=== PATIENT | female | born 1970 | race Caucasian/White ===

== ENCOUNTER → 2016-09-04 | Outpatient (CLI) | payer MEDICAID ==
[~2016-09-04] MED LIST: /QUET10TA OR; ADV250INH INH; ALBU17IN2 INH; CYMBALTA; CYMBALTA PO; DRIS50002 PO; IBUP80TA PO; LEVO25TA5 PO; MACROBID PO; MIRA3350 PO; NORT75CA2 PO; OMEP20CA3 PO; XANA1TAB2 OR; XANAX
--- NOTE | 2016-09-04 14:38 | REPMRS ---
Patient History The patient states she has not had a clinical breast exam in over a year. Patient is postmenopausal. Family history of colorectal cancer in father at age 56. Digital Woman Screen Mammo: September 04, 2016 - Exam #: [id number] Bilateral CC and MLO view(s) were taken. Technologist: Adriana Centeno, Technologist Prior study comparison: August 15, 2010, digital bilateral screening mammo, performed at [facility]. January 07, 2009, digital bilateral screening mammo, performed at [facility]. FINDINGS: The breast tissue is heterogeneously dense. This may lower the sensitivity of mammography. There is a fairly symmetric fibroglandular pattern in both breasts. There has been no interval development of masses, areas of architectural distortion or clusters of microcalcifications typical of malignancy. ASSESSMENT: BI-RADS/ACR category 2 mammogram. Benign finding(s). Recommendation Routine screening mammogram of both breasts in 1 year (for women over age 40). This mammogram was interpreted with the aid of an FDA-approved computer-aided dectection system. Electronically Signed By: Kaushik Santos MD 09/04/16 2235
== END ==
LOC: M WHC 13:22
PROVIDERS: ATTEND Family Medicine
DX: Z12.31 Encounter for screening mammogram for malignant neoplasm of breast (principal)

== ENCOUNTER → 2016-09-05 | Outpatient (REF) | payer MEDICAID | LOC: M SFHCWAGY 12:12 | PROVIDERS: ATTEND Nurse Practitioner Family | DX: Z12.4 Encounter for screening for malignant neoplasm of cervix (principal); N39.42 Incontinence without sensory awareness; A59.01 Trichomonal vulvovaginitis | CPT/HCPCS: 87086; G0123 ==

== ENCOUNTER 2017-01-25 13:49 | Emergency (ER) | payer MEDICAID, OTHER ==
[~2017-01-25] VITALS: Ht 152.4 cm; Wt 110.1 kg
[2017-01-25] MEDS ORDERED: CLON-412 (14:14)
[2017-01-25] MEDS ORDERED: LORA1TAB12 (14:14)
[2017-01-25] MEDS ORDERED: ATIV1TAB7 (14:14)
[2017-01-25] MEDS ORDERED: CYCL10TA (14:14)
[2017-01-25] MEDS ORDERED: NS 1,000 ML IV SCH (14:22)
--- NOTE | 2017-01-25 15:11 | REP ---
PORTABLE CHEST: AP portable view of the chest is performed and compared to multiple prior exams, the most recent of which is 10/18/2013. Right heart border is not well visualized with some ill-defined opacity in that region, possibly representing atelectasis or infiltrate. There is no definite infiltrate on the left side. Heart is upper limits of normal in size. Mediastinal silhouette is unremarkable and unchanged. IMPRESSION: Possible small area of right middle lobe atelectasis or infiltrate. Signed by Kaushik Santos MD 01/26/2017 05:02 P
[2017-01-25 15:12] LABS: BASO % 0.5 % (0.0-1.0); EOS % 1.4 % (0.0-3.0); LARGE UNSTAINED CELL % 1.8 % (0.0-4.0); LYMPH % 17.2 % (24.0-44.0); MEAN CORPUSCULAR HEMOGLOBIN 32.7 pg (27.0-33.0); MEAN CORPUSCULAR HGB CONC 33.5 g/dl (32.0-36.5); MEAN CORPUSCULAR VOLUME 97.8 fl (80.0-96.0); MONO % 6.2 % (0.0-5.0); NEUTROPHILS # 8.6 K/mm3 (1.8-7.7); NEUTROPHILS % 72.8 % (36.0-66.0); PLATELET COUNT, AUTOMATED 248 k/mm3 (150-450); RED CELL DISTRIBUTION WIDTH 14.6 % (11.5-14.5); WHITE BLOOD COUNT 11.8 K/mm3 (4.0-10.0)
[2017-01-25 15:13] LABS: ADD MANUAL DIFFER NO; ADD MORPHOLOGY? NO; BASO # 0.1 K/mm3 (0.0-0.2); DIFF SLIDE NUMBER 285; EOS # 0.2 K/mm3 (0.0-0.50); LARGE UNSTAINED CELL # 0.2 K/mm3 (0.0-0.4); MONO # 0.7 K/mm3 (0.0-0.8)
[2017-01-25 15:23] LABS: ALBUMIN 3.5 GM/DL (3.2-5.2); ALBUMIN/GLOBULIN RATIO 1.03 (1.00-1.93); ALKALINE PHOSPHATASE 90 U/L (45-117); ALT/SGPT 23 U/L (12-78); ANION GAP 9 MEQ/L (8-16); AST/SGOT 10 U/L (15-37); BILIRUBIN,DIRECT < 0.1 MG/DL (0.0-0.2); BILIRUBIN,TOTAL 0.3 MG/DL (0.2-1.0); BLOOD UREA NITROGEN 18 MG/DL (7-18); CALCIUM LEVEL 8.7 MG/DL (8.5-10.1); CARBON DIOXIDE LEVEL 24 MEQ/L (21-32); CHLORIDE LEVEL 111 MEQ/L (98-107); CREATININE FOR GFR 0.65 MG/DL (0.55-1.02); GLOMERULAR FILTRATION RATE > 60.0 (>58); GLUCOSE, FASTING 111 MG/DL (70-105); POTASSIUM SERUM 3.9 MEQ/L (3.5-5.1); SODIUM LEVEL 144 MEQ/L (136-145); TOTAL PROTEIN 6.9 GM/DL (6.4-8.2)
[2017-01-25] MEDS ORDERED: ISOVUE-370 76% 100ML VIAL (Q9967) As Ordered ONE (16:09)
--- NOTE | 2017-01-25 16:45 | REP ---
CT of the chest with IV contrast, CT pulmonary angiography: Comparison is the portable plain film study performed earlier today. There are no emboli in the pulmonary trunk or central pulmonary arteries. There are no emboli in the pulmonary lobe or segment branches. There are no infiltrates, effusions or masses. There is no mediastinal or hilar adenopathy. No axillary adenopathy. The thoracic aorta is unremarkable. The visualized upper abdomen is unremarkable except for an 80 mm cyst in the medial segment of the hepatic left lobe. Impression: There are no pulmonary emboli. There are no infiltrates, effusions or masses. No adenopathy. Otherwise, negative study. An hepatic cyst is incidentally identified. Signed by Kaushik Ochoa MD 01/25/2017 04:37 P
[2017-01-25] MEDS ORDERED: SUCR1SS PO (16:53)
[2017-01-25] MEDS ORDERED: GI COCKTAIL 50ML BTL(HYOSCYAMINE/MAALOX/LIDOCAINE VISCOUS)(1:3:1) PO ONE (17:00)
[2017-01-25 17:05] VITALS: BP 129/65
[2017-01-25] MEDS ORDERED: ASPI81TA85 PO (17:10)
[2017-01-25] MEDS ORDERED: ASPIRIN 325 MG TAB PO ONE (17:15)
--- NOTE | 2017-01-25 21:00 | ECGEPIP ---
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
== END 2017-01-25 17:35 | disposition home or self-care (01) ==
LOC: M ED 13:49
DX: R07.9 Chest pain, unspecified (principal); J45.909 Unspecified asthma, uncomplicated; E78.4 Other hyperlipidemia; E03.9 Hypothyroidism, unspecified
CPT/HCPCS: 36415; 71010; 71275; 80048; 80076; 82550; 82553; 83690; 83880; 85025; 85379; 93000; 93041; 96360; 96361; 99285; Q9967

== ENCOUNTER → 2017-04-13 | Outpatient (REF) | payer OTHER ==
[~2017-04-13] MED LIST changes: +ASPI81TA85 PO; +ATIV1TAB7; +CLON-412; +CYCL10TA; +LORA1TAB12; +SUCR1SS PO
[2017-04-13 14:38] LABS: VITAMIN B12 LEVEL 287 PG/ML (247-911)
[2017-04-13 14:40] LABS: FREE T4 1.03 NG/DL (0.76-1.46); TOTAL PROTEIN 6.9 GM/DL (6.4-8.2)
[2017-04-16 11:14] LABS: ALBUMIN 3.97 GM/DL (3.29-5.55); ALBUMIN % 57.6 % (55.8-66.1); GAMMA GLOBULIN % 13.7 % (11.1-18.8)
[2017-04-17 10:14] LABS: PRETREATED FOLATE FOR RBCFOL 5.9 NG/ML
[2017-04-20 10:16] LABS: BENZODIAZEPINES, URINE SCREEN Negative ng/mL (Cutoff=200); COMPLEMENT TOTAL (CH50) > 63 U/mL (42-60); H PYLORI SERUM QUANT IgG ABY <0.9 U/mL (0.0-0.8); METHADONE, URINE SCREEN Negative ng/mL (Cutoff=300); pH, URINE 5.5 (4.5-8.9)
== END ==
LOC: M SFHCPLAZ 11:54
PROVIDERS: ATTEND Family Medicine
DX: E03.9 Hypothyroidism, unspecified (principal); R73.01 Impaired fasting glucose; E55.9 Vitamin D deficiency, unspecified; D75.89 Other specified diseases of blood and blood-forming organs; M47.816 Spondylosis without myelopathy or radiculopathy, lumbar region

== ENCOUNTER → 2017-10-29 | Outpatient (REF) | payer OTHER ==
[2017-10-29 11:54] LABS: BASO # 0.1 10^3/uL (0.0-0.2); BASO % 0.6 % (0.0-1.0); EOS # 0.2 10^3/uL (0.0-0.50); EOS % 1.8 % (0.0-3.0); HEMATOCRIT 49.2 % (36.0-47.0); HEMOGLOBIN 16.6 g/dl (12.0-15.5); IMMATURE GRANULOCYTE % 0.8 % (0-3.0); LYMPH # 2.6 10^3/uL (1.5-4.5); LYMPH % 21.4 % (24.0-44.0); MEAN CORPUSCULAR HEMOGLOBIN 32.4 pg (27.0-33.0); MEAN CORPUSCULAR HGB CONC 33.7 g/dl (32.0-36.5); MEAN CORPUSCULAR VOLUME 96.1 fl (80.0-96.0); MONO # 1.1 10^3/uL (0.0-0.8); MONO % 9.5 % (0.0-5.0); NEUTROPHILS # 7.9 10^3/uL (1.8-7.7); NEUTROPHILS % 65.9 % (36.0-66.0); PLATELET COUNT, AUTOMATED 249 10^3/uL (150-450); RED BLOOD COUNT 5.12 10^6/uL (4.00-5.40); RED CELL DISTRIBUTION WIDTH 12.7 % (11.5-14.5)
[2017-10-29 11:58] LABS: HEMATOCRIT 49.2 % (36.0-47.0)
[2017-10-29 12:19] LABS: PTH INTACT 36.2 PG/ML (18.5-88.0); TOTAL 25(OH) VITAMIN D 34.8 NG/ML (30.0-100.0)
[2017-10-29 12:20] LABS: VITAMIN B12 LEVEL 340 PG/ML (247-911)
[2017-10-29 12:51] LABS: ALBUMIN 3.9 GM/DL (3.2-5.2); ALBUMIN/GLOBULIN RATIO 1.11 (1.00-1.93); ALKALINE PHOSPHATASE 76 U/L (45-117); ALT/SGPT 32 U/L (12-78); ANION GAP 6 MEQ/L (8-16); AST/SGOT 15 U/L (7-37); BILIRUBIN,TOTAL 0.4 MG/DL (0.2-1.0); BLOOD UREA NITROGEN 11 MG/DL (7-18); C REACTIVE PROTEIN QUANTITATIV 0.65 MG/DL (0.00-0.30); CALCIUM LEVEL 9.1 MG/DL (8.5-10.1); CARBON DIOXIDE LEVEL 28 MEQ/L (21-32); CHLORIDE LEVEL 106 MEQ/L (98-107); CHOLESTEROL LEVEL 197 MG/DL (<200); CHOLESTEROL RISK RATIO 3.517 (<5); CREATININE FOR GFR 0.75 MG/DL (0.55-1.30); FREE T4 0.94 NG/DL (0.76-1.46); GLOMERULAR FILTRATION RATE > 60.0 (>58); GLUCOSE, FASTING 89 MG/DL (70-100); HDL CHOLESTEROL 56 MG/DL (>40); LDL CHOLESTEROL 112.6 MG/DL (<100); NON-HDL-C 141 MG/DL; POTASSIUM SERUM 4.2 MEQ/L (3.5-5.1); SODIUM LEVEL 140 MEQ/L (136-145); TOTAL PROTEIN 7.4 GM/DL (6.4-8.2); TRIGLYCERIDES LEVEL 142 MG/DL (<150)
[2017-10-30 11:38] LABS: PRETREATED FOLATE FOR RBCFOL 13.1 NG/ML; RBC FOLATE 559.1 NG/ML (280-791)
== END ==
LOC: M SFHCPLAZ 09:39
DX: E53.8 Deficiency of other specified B group vitamins (principal); E55.9 Vitamin D deficiency, unspecified; E78.2 Mixed hyperlipidemia; E03.9 Hypothyroidism, unspecified

== ENCOUNTER → 2018-01-01 | Outpatient (REF) | payer OTHER | LOC: M LAB REF 13:53 | DX: L72.3 Sebaceous cyst (principal) ==

== ENCOUNTER → 2018-04-23 | Outpatient (REF) | payer OTHER ==
[2018-04-23 19:05] LABS: BASO # 0.1 10^3/uL (0.0-0.2); BASO % 0.7 % (0.0-1.0); EOS # 0.3 10^3/uL (0.0-0.50); EOS % 2.9 % (0.0-3.0); HEMATOCRIT 49.7 % (36.0-47.0); HEMOGLOBIN 16.2 g/dl (12.0-15.5); IMMATURE GRANULOCYTE % 0.7 % (0-3.0); LYMPH # 2.6 10^3/uL (1.5-4.5); LYMPH % 26.3 % (24.0-44.0); MEAN CORPUSCULAR HEMOGLOBIN 31.6 pg (27.0-33.0); MEAN CORPUSCULAR HGB CONC 32.6 g/dl (32.0-36.5); MEAN CORPUSCULAR VOLUME 97.1 fl (80.0-96.0); MONO # 0.9 10^3/uL (0.0-0.8); MONO % 9.5 % (0.0-5.0); NEUTROPHILS % 59.9 % (36.0-66.0); PLATELET COUNT, AUTOMATED 249 10^3/uL (150-450); RED BLOOD COUNT 5.12 10^6/uL (4.00-5.40); RED CELL DISTRIBUTION WIDTH 13.2 % (11.5-14.5); WHITE BLOOD COUNT 9.9 10^3/uL (4.0-10.0)
[2018-04-23 19:16] LABS: APPEARANCE, URINE HAZY (CLEAR); BACTERIA, URINE AUTO NEGATIVE (NEGATIVE); BILIRUBIN, URINE AUTO NEGATIVE (NEGATIVE); BLOOD, URINE BLOOD 1+ (NEGATIVE); COLOR, URINE YELLOW (YELLOW); GLUCOSE, URINE (UA) AUTO NEGATIVE (NEGATIVE); KETONE, URINE AUTO NEGATIVE (NEGATIVE); LEUKOCYTE ESTERASE, URINE AUTO NEGATIVE (NEGATIVE); NITRITE, URINE AUTO NEGATIVE (NEGATIVE); PROTEIN, URINE AUTO NEGATIVE (NEGATIVE); RBC, URINE AUTO 6 /HPF (0-3); SPECIFIC GRAVITY URINE AUTO 1.023 (1.002-1.035); SQUAMOUS EPITHELIAL CELL UR AU 4 /HPF (0-6); WBC, URINE AUTO 0 /HPF (0-3)
[2018-04-23 19:26] LABS: ALBUMIN 3.7 GM/DL (3.2-5.2); ALBUMIN/GLOBULIN RATIO 1.09 (1.00-1.93); ALKALINE PHOSPHATASE 90 U/L (45-117); ALT/SGPT 31 U/L (12-78); ANION GAP 10 MEQ/L (8-16); AST/SGOT 20 U/L (7-37); BILIRUBIN,TOTAL 0.2 MG/DL (0.2-1.0); BLOOD UREA NITROGEN 11 MG/DL (7-18); CALCIUM LEVEL 8.9 MG/DL (8.5-10.1); CARBON DIOXIDE LEVEL 27 MEQ/L (21-32); CHLORIDE LEVEL 102 MEQ/L (98-107); CREATININE FOR GFR 0.75 MG/DL (0.55-1.30); GLOMERULAR FILTRATION RATE > 60.0 (>58); GLUCOSE, FASTING 85 MG/DL (70-100); MAGNESIUM LEVEL 2.1 MG/DL (1.8-2.4); POTASSIUM SERUM 4.2 MEQ/L (3.5-5.1); SODIUM LEVEL 139 MEQ/L (136-145); TOTAL PROTEIN 7.1 GM/DL (6.4-8.2)
[2018-04-23 19:30] LABS: ESTIMATED AVERAGE GLUCOSE 111 MG/DL (60-110); HEMOGLOBIN A1c 5.5 %
[2018-04-23 19:32] LABS: MALB URINE SIEMENS 8.4 MG/L
[2018-04-23 19:41] LABS: MAU/CREAT RATIO 5.1 MCG/MG (0.0-30.0)
[2018-04-25 08:06] LABS: ERYTHROPOIETIN 6.6 mIU/mL (2.6-18.5)
== END ==
LOC: M SFHCPLAZ 15:26
DX: D75.89 Other specified diseases of blood and blood-forming organs (principal); R73.01 Impaired fasting glucose; E78.2 Mixed hyperlipidemia

== ENCOUNTER → 2018-11-11 | Outpatient (CLI) | payer OTHER ==
[~2018-11-11] MED LIST changes: -/QUET10TA OR; -DRIS50002 PO; +DRIS50003 PO; +SERO1TAB OR
[2018-11-11 10:39] LABS: BASO # 0.1 10^3/uL (0.0-0.2); BASO % 0.8 % (0.0-1.0); EOS # 0.3 10^3/uL (0.0-0.50); EOS % 2.7 % (0.0-3.0); HEMATOCRIT 47.3 % (36.0-47.0); HEMOGLOBIN 15.6 g/dl (12.0-15.5); LYMPH # 2.5 10^3/uL (1.5-4.5); MEAN CORPUSCULAR HEMOGLOBIN 33.1 pg (27.0-33.0); MEAN CORPUSCULAR VOLUME 100.4 fl (80.0-96.0); NEUTROPHILS # 5.8 10^3/uL (1.8-7.7); NEUTROPHILS % 59.8 % (36.0-66.0); PLATELET COUNT, AUTOMATED 236 10^3/uL (150-450); RED BLOOD COUNT 4.71 10^6/uL (4.00-5.40); WHITE BLOOD COUNT 9.7 10^3/uL (4.0-10.0)
[2018-11-11 10:56] LABS: HEMOGLOBIN A1c 5.7 %
[2018-11-11 11:08] LABS: ALBUMIN 3.7 GM/DL (3.2-5.2); ALT/SGPT 23 U/L (12-78); BILIRUBIN,TOTAL 0.3 MG/DL (0.2-1.0); BLOOD UREA NITROGEN 15 MG/DL (7-18); CALCIUM LEVEL 8.7 MG/DL (8.5-10.1); CARBON DIOXIDE LEVEL 29 MEQ/L (21-32); CHLORIDE LEVEL 105 MEQ/L (98-107); CREATININE FOR GFR 0.71 MG/DL (0.55-1.30); FREE T4 0.84 NG/DL (0.76-1.46); GLOMERULAR FILTRATION RATE > 60.0 (>51); GLUCOSE, FASTING 99 MG/DL (70-100); POTASSIUM SERUM 4.9 MEQ/L (3.5-5.1); SODIUM LEVEL 140 MEQ/L (136-145); TOTAL PROTEIN 6.6 GM/DL (6.4-8.2); VITAMIN B12 LEVEL 236 PG/ML (247-911)
[2018-11-12 14:16] LABS: ALBUMIN 3.97 GM/DL (3.29-5.55); ALBUMIN % 60.1 % (55.8-66.1); ALPHA-1-GLOBULIN % 5.4 % (2.9-4.9); ALPHA-2-GLOBULINS % 8.9 % (7.1-11.8); BETA-1-GLOBULINS % 7.1 % (4.7-7.2); GAMMA GLOBULIN % 12.5 % (11.1-18.8)
[2018-11-12 14:17] LABS: ALPHA-1-GLOBULINS 0.36 GM/DL (0.17-0.41); ALPHA-2-GLOBULINS 0.59 GM/DL (0.42-0.99); BETA-1-GLOBULINS 0.47 GM/DL (0.28-0.60); GAMMA GLOBULINS 0.83 GM/DL (0.65-1.58)
[2018-11-12 14:18] LABS: IMMUNOTYPING SERUM IGG ABNORMAL (NORMAL); IMMUNOTYPING SERUM KAPPA ABNORMAL (NORMAL)
== END ==
LOC: M LAB 11-08 10:28
PROVIDERS: ATTEND Family Medicine
DX: E53.8 Deficiency of other specified B group vitamins (principal); E78.2 Mixed hyperlipidemia; E03.9 Hypothyroidism, unspecified; D75.89 Other specified diseases of blood and blood-forming organs
CPT/HCPCS: 36415; 80053; 82607; 83036; 84165; 84439; 84443; 84600; 85025; 85046; 86335; G0480

== ENCOUNTER → 2018-11-12 | Outpatient (CLI) | payer OTHER | LOC: M LAB 08:45 | PROVIDERS: ATTEND Family Medicine | DX: D75.89 Other specified diseases of blood and blood-forming organs (principal); E53.8 Deficiency of other specified B group vitamins; E78.2 Mixed hyperlipidemia; F32.9 Major depressive disorder, single episode, unspecified; E03.9 Hypothyroidism, unspecified ==

== ENCOUNTER → 2018-11-22 | Outpatient (REF) | payer OTHER ==
[2018-11-22 11:45] LABS: IMMUNOGLOBULIN M 32.6 MG/DL (40-230)
[2018-11-26 00:06] LABS: FREE KAPPA LIGHT CHAINS SERUM 25.9 mg/L (3.3-19.4); FREE KAPPA LIGHT CHAINS URINE 18.7 mg/L (1.35-24.19); FREE LAMBDA LIGHT CHAINS SERUM 16.3 mg/L (5.7-26.3); FREE LAMBDA LIGHT CHAINS URINE 1.5 mg/L (0.24-6.66); KAPPA/LAMBDA RATIO SERUM 1.59 (0.26-1.65); KAPPA/LAMBDA RATIO URINE 12.47 (2.04-10.37)
== END ==
LOC: M SFHCPLAZ 08:46
PROVIDERS: ATTEND Nurse Practitioner Family
DX: D47.2 Monoclonal gammopathy (principal)

== ENCOUNTER → 2019-05-12 | Outpatient (REF) | payer OTHER ==
[~2019-05-12] MED LIST changes: -OMEP20CA3 PO; +OMEP20CA4 PO
[2019-05-12 15:53] LABS: BASO # 0.1 10^3/uL (0.0-0.2); BASO % 0.8 % (0.0-1.0); EOS # 0.2 10^3/uL (0.0-0.5); EOS % 2.1 % (0.0-3.0); HEMOGLOBIN 15.9 g/dl (12.0-15.5); LYMPH # 2.1 10^3/uL (1.5-5.0); LYMPH % 23.1 % (24.0-44.0); MEAN CORPUSCULAR HEMOGLOBIN 31.9 pg (27.0-33.0); MEAN CORPUSCULAR HGB CONC 31.8 g/dl (32.0-36.5); MEAN CORPUSCULAR VOLUME 100.4 fl (80.0-96.0); MONO # 1.1 10^3/uL (0.0-0.8); MONO % 11.6 % (0.0-5.0); NEUTROPHILS # 5.6 10^3/uL (1.5-8.5); NEUTROPHILS % 61.6 % (36.0-66.0); PLATELET COUNT, AUTOMATED 215 10^3/uL (150-450); RED BLOOD COUNT 4.98 10^6/uL (4.00-5.40); WHITE BLOOD COUNT 9.1 10^3/uL (4.0-10.0)
[2019-05-12 16:10] LABS: ALBUMIN 3.8 GM/DL (3.2-5.2); ALT/SGPT 31 U/L (12-78); BILIRUBIN,TOTAL 0.5 MG/DL (0.2-1.0); BLOOD UREA NITROGEN 14 MG/DL (7-18); CALCIUM LEVEL 9.3 MG/DL (8.5-10.1); CARBON DIOXIDE LEVEL 31 MEQ/L (21-32); CHLORIDE LEVEL 102 MEQ/L (98-107); CREATININE FOR GFR 0.71 MG/DL (0.55-1.30); FREE T4 0.78 NG/DL (0.76-1.46); GLOMERULAR FILTRATION RATE > 60.0 (>51); GLUCOSE, FASTING 99 MG/DL (70-100); HEMOGLOBIN A1c 5.7 %; POTASSIUM SERUM 4.4 MEQ/L (3.5-5.1); SODIUM LEVEL 139 MEQ/L (136-145); TOTAL PROTEIN 7.2 GM/DL (6.4-8.2); VITAMIN B12 LEVEL 196 PG/ML (247-911)
[2019-05-12 16:11] LABS: FOLATE 19.2 NG/ML (>5.4)
== END ==
LOC: M SFHCPLAZ 13:56
PROVIDERS: ATTEND Physician Assistant Medical
DX: E03.9 Hypothyroidism, unspecified (principal); E53.8 Deficiency of other specified B group vitamins; D75.89 Other specified diseases of blood and blood-forming organs; J30.9 Allergic rhinitis, unspecified; E78.2 Mixed hyperlipidemia

== ENCOUNTER 2019-11-03 23:48 | Emergency (ER) | payer OTHER ==
[~2019-11-03] VITALS: Ht 157.5 cm; Wt 104.5 kg
[~2019-11-03 23:48] MED LIST changes: +CYCL-707; -CYCL10TA; -LORA1TAB12; +LORA1TAB4; +OMEP1CAP73 PO; -OMEP20CA4 PO
[2019-11-04] MEDS ORDERED: COMBIVENT RESPIMAT 100-20MCG INHALER 4GM INH ONE (00:30)
[2019-11-04] MEDS ORDERED: methylPREDNISolone INJ 125 MG/2 ML VIAL (J2930) IV ONE (00:30)
--- NOTE | 2019-11-04 00:41 | REP ---
Clinical: Chest pain . Comparison: 01/25/2017 . Findings: The mediastinum and cardiac silhouette are stable and within normal limits for portable technique. The lung hoyos are clear without acute consolidation, effusion, or pneumothorax. Skeletal structures are intact. Impression: No acute cardiopulmonary process appreciated. Electronically Signed by Chas June MD 11/04/2019 12:33 A
[2019-11-04 00:45] LABS: BASO # 0.1 10^3/uL (0.0-0.2); BASO % 0.7 % (0.0-1.0); EOS # 0.2 10^3/uL (0.0-0.5); EOS % 1.8 % (0.0-3.0); HEMATOCRIT 45.4 % (36.0-47.0); HEMOGLOBIN 14.7 g/dl (12.0-15.5); LYMPH # 2.3 10^3/uL (1.5-5.0); LYMPH % 23.9 % (24.0-44.0); MEAN CORPUSCULAR HEMOGLOBIN 32.2 pg (27.0-33.0); MEAN CORPUSCULAR HGB CONC 32.4 g/dl (32.0-36.5); MEAN CORPUSCULAR VOLUME 99.3 fl (80.0-96.0); MONO # 0.8 10^3/uL (0.0-0.8); MONO % 8.7 % (0.0-5.0); NEUTROPHILS # 6.2 10^3/uL (1.5-8.5); PLATELET COUNT, AUTOMATED 214 10^3/uL (150-450); RED BLOOD COUNT 4.57 10^6/uL (4.00-5.40); WHITE BLOOD COUNT 9.7 10^3/uL (4.0-10.0)
[2019-11-04 01:05] LABS: INR 1.04; PROTHROMBIN TIME 13.3 SECONDS (11.8-14.0)
[2019-11-04 01:06] LABS: PARTIAL THROMBOPLASTIN TIME 28.6 SECONDS (25.0-38.4)
[2019-11-04 01:30] LABS: ALBUMIN 3.4 GM/DL (3.2-5.2); ALT/SGPT 35 U/L (12-78); BILIRUBIN,DIRECT < 0.1 MG/DL (0.0-0.2); BILIRUBIN,TOTAL 0.2 MG/DL (0.2-1.0); BLOOD UREA NITROGEN 10 MG/DL (7-18); CALCIUM LEVEL 8.7 MG/DL (8.5-10.1); CARBON DIOXIDE LEVEL 29 MEQ/L (21-32); CHLORIDE LEVEL 106 MEQ/L (98-107); CK-MB VALUE MASS 1.1 NG/ML (<3.6); CPK CREATINE PHOSPHOKINASE 46 U/L (26-192); CREATININE FOR GFR 0.55 MG/DL (0.55-1.30); FREE T4 0.97 NG/DL (0.76-1.46); GLOMERULAR FILTRATION RATE > 60.0 (>51); GLUCOSE, FASTING 87 MG/DL (70-100); MB/CK RELATIVE INDEX 2.39 (< OR =4); NT-PRO BNP 80 PG/ML (<125); POTASSIUM SERUM 3.9 MEQ/L (3.5-5.1); SODIUM LEVEL 141 MEQ/L (136-145); TROPONIN I < 0.02 NG/ML (< 0.10)
--- NOTE | 2019-11-04 01:47 | REPVR ---
PROCEDURE INFORMATION: Exam: US Duplex Lower Extremity Veins, Bilateral Exam date and time: 11/04/2019 1:39 AM Age: 49 years old Clinical indication: Pain; Swelling (edema) of limb; Lower extremity, bilateral; Leg, lower; Additional info: Pain/edema R/O dvt TECHNIQUE: Imaging protocol: Real-time duplex ultrasound of the extremities with 2-D cavazos scale, color Doppler flow and spectral waveform analysis with image documentation. Complete exam focused on the bilateral lower extremity veins. COMPARISON: No relevant prior studies available. FINDINGS: Right deep veins: Unremarkable. The common femoral, femoral, proximal profunda femoral and popliteal veins are patent without thrombus. Normal Doppler waveforms. Normal compressibility and/or augmentation response. Right superficial veins: Saphenofemoral junction is patent without thrombus. Left deep veins: Unremarkable. The common femoral, femoral, proximal profunda femoral and popliteal veins are patent without thrombus. Normal Doppler waveforms. Normal compressibility and/or augmentation response. Left superficial veins: Saphenofemoral junction is patent without thrombus. Soft tissues: Unremarkable. IMPRESSION: Negative bilateral lower extremity venous duplex exam without evidence of deep venous thrombosis. Electronically signed by: Ren Burrows On 11/04/2019 01:47:31 AM
[2019-11-04 01:48] LABS: D-DIMER QUANT < 270 ng/ml (<500)
[2019-11-04 02:20] VITALS: O2SAT 92
[2019-11-04 02:25] VITALS: BP 115/59
[2019-11-04] MEDS ORDERED: PRED20TA PO (02:35)
--- NOTE | 2019-11-04 07:16 | ECGEPIP ---
[facility] - ED Test Date: 2019-11-04 Pat Name: FE JJ Department: Room: - Gender: Female Tread Booker: SHANTEL : 1970 Requested By: KATIANA Jimenez Order Number: [id number] Reading MD: Myrna West Measurements Intervals [place] Rate: 84 P: 54 NC: 132 QRS: 66 QRSD: 101 T: 48 QT: 394 QTc: 468 Interpretive Statements SINUS RHYTHM NSTTW abnormalities DECREASED RATE 01/25/17 Electronically Signed on 11-04-2019 7:16:32 EDT by Myrna West
== END 2019-11-04 02:48 | disposition home or self-care (01) ==
LOC: M ED 23:48
DX: J45.901 Unspecified asthma with (acute) exacerbation (principal); R60.0 Localized edema; E03.8 Other specified hypothyroidism; M19.90 Unspecified osteoarthritis, unspecified site; E55.9 Vitamin D deficiency, unspecified; E78.5 Hyperlipidemia, unspecified; F17.200 Nicotine dependence, unspecified, uncomplicated; Z79.899 Other long term (current) drug therapy; Z88.8 Allergy status to other drugs, medicaments and biological substances
CPT/HCPCS: 36415; 71045; 80048; 80076; 82550; 82553; 83880; 84439; 84443; 85025; 85379; 85610; 85730; 87486; 87581; 87633; 87798; 93005; 93041; 93970; 94640; 94760; 96374; 99284; J2930; U0003

== ENCOUNTER → 2022-01-10 | Outpatient (CLI) | payer OTHER ==
[~2022-01-10] MED LIST changes: -ASPI81TA85 PO; +ASPI81TA86 PO; +PRED20TA PO
[2022-01-10 14:39] LABS: BASO # 0.1 10^3/uL (0.0-0.2); BASO % 0.6 % (0.0-1.0); EOS # 0.1 10^3/uL (0.0-0.5); EOS % 1.4 % (0.0-3.0); HEMATOCRIT 54.2 % (36.0-47.0); HEMOGLOBIN 17.9 g/dl (12.0-15.5); LYMPH % 23.7 % (24.0-44.0); MEAN CORPUSCULAR HEMOGLOBIN 33.8 pg (27.0-33.0); MEAN CORPUSCULAR VOLUME 102.3 fl (80.0-96.0); MONO # 0.9 10^3/uL (0.0-0.8); MONO % 9.9 % (2.0-8.0); NEUTROPHILS # 5.5 10^3/uL (1.5-8.5); NEUTROPHILS % 63.6 % (36.0-66.0); PLATELET COUNT, AUTOMATED 198 10^3/uL (150-450); WHITE BLOOD COUNT 8.6 10^3/uL (4.0-10.0)
[2022-01-10 15:06] LABS: ALBUMIN 3.7 GM/DL (3.2-5.2); ALT/SGPT 25 U/L (12-78); BILIRUBIN,TOTAL 0.3 MG/DL (0.2-1.0); BLOOD UREA NITROGEN 12 MG/DL (7-18); CALCIUM LEVEL 9.7 MG/DL (8.5-10.1); CARBON DIOXIDE LEVEL 28 MEQ/L (21-32); CHLORIDE LEVEL 106 MEQ/L (98-107); CHOLESTEROL LEVEL 259 MG/DL (<200); CHOLESTEROL RISK RATIO 3.865 (<5); CREATININE FOR GFR 0.52 MG/DL (0.55-1.30); FREE T4 0.77 NG/DL (0.76-1.46); GLOMERULAR FILTRATION RATE > 60.0 (>51); GLUCOSE, FASTING 106 MG/DL (70-100); HDL CHOLESTEROL 67 MG/DL (>40); LDL CHOLESTEROL 147 MG/DL (<100); NON-HDL-C 192 MG/DL; POTASSIUM SERUM 4.3 MEQ/L (3.5-5.1); SODIUM LEVEL 142 MEQ/L (136-145); TOTAL PROTEIN 6.9 GM/DL (6.4-8.2); TRIGLYCERIDES LEVEL 227 MG/DL (<150)
[2022-01-10 15:31] LABS: TOTAL 25(OH) VITAMIN D 31.8 NG/ML (30.0-100.0); VITAMIN B12 LEVEL 1257 PG/ML (247-911)
[2022-01-10 15:32] LABS: FOLATE 8.2 NG/ML (>5.4)
[2022-01-10 15:46] LABS: HEMOGLOBIN A1c 5.6 %
[2022-01-13 12:39] LABS: ALBUMIN % 62.2 % (55.8-66.1); ALPHA-1-GLOBULIN % 4.9 % (2.9-4.9); ALPHA-2-GLOBULINS % 8.6 % (7.1-11.8)
[2022-01-13 12:40] LABS: ALBUMIN 4.29 GM/DL (3.29-5.55); ALPHA-1-GLOBULINS 0.34 GM/DL (0.17-0.41); ALPHA-2-GLOBULINS 0.59 GM/DL (0.42-0.99); BETA-1-GLOBULINS % 7.3 % (4.7-7.2); BETA-2-GLOBULINS 0.39 GM/DL (0.19-0.55); BETA-2-GLOBULINS % 5.7 % (3.2-6.5); GAMMA GLOBULIN % 11.3 % (11.1-18.8); GAMMA GLOBULINS 0.78 GM/DL (0.65-1.58)
== END ==
LOC: M PLALAB 09:38
PROVIDERS: ATTEND Nurse Practitioner Adult Health
DX: E53.8 Deficiency of other specified B group vitamins (principal); E78.2 Mixed hyperlipidemia; E03.9 Hypothyroidism, unspecified; E55.9 Vitamin D deficiency, unspecified; D47.2 Monoclonal gammopathy; F32.9 Major depressive disorder, single episode, unspecified; R73.01 Impaired fasting glucose

== ENCOUNTER → 2022-10-16 | Outpatient (REF) | payer OTHER ==
[~2022-10-16] MED LIST changes: +LORA1TAB23; -LORA1TAB4
== END ==
LOC: M SFHCPLAZ 18:06
PROVIDERS: ATTEND Family Medicine
DX: D47.2 Monoclonal gammopathy (principal); E03.9 Hypothyroidism, unspecified; R73.01 Impaired fasting glucose; E78.2 Mixed hyperlipidemia; E55.9 Vitamin D deficiency, unspecified; E53.8 Deficiency of other specified B group vitamins; Z53.9 Procedure and treatment not carried out, unspecified reason

== ENCOUNTER → 2022-12-05 | Outpatient (CLI) | payer OTHER ==
[2022-12-05 14:13] LABS: BASO # 0.1 10^3/uL (0.0-0.2); BASO % 0.9 % (0.0-1.0); EOS # 0.1 10^3/uL (0.0-0.5); EOS % 0.9 % (0.0-3.0); HEMATOCRIT 56.4 % (36.0-47.0); HEMOGLOBIN 19.1 g/dl (12.0-15.5); LYMPH % 31.1 % (24.0-44.0); MEAN CORPUSCULAR HEMOGLOBIN 35.8 pg (27.0-33.0); MEAN CORPUSCULAR HGB CONC 33.9 g/dl (32.0-36.5); MEAN CORPUSCULAR VOLUME 105.6 fl (80.0-96.0); MONO % 9.9 % (2.0-8.0); NEUTROPHILS # 5.4 10^3/uL (1.5-8.5); NEUTROPHILS % 56.5 % (36.0-66.0); PLATELET COUNT, AUTOMATED 224 10^3/uL (150-450); RED BLOOD COUNT 5.34 10^6/uL (4.00-5.40); WHITE BLOOD COUNT 9.6 10^3/uL (4.0-10.0)
[2022-12-05 14:17] LABS: HEMATOCRIT 57.2 % (36.0-47.0)
[2022-12-05 14:31] LABS: HEMOGLOBIN A1c 5.2 % (4.0-6.0)
[2022-12-05 14:50] LABS: CHOLESTEROL LEVEL 228 MG/DL (<200); FREE T4 0.97 NG/DL (0.89-1.76); HDL CHOLESTEROL 73.4 MG/DL (>40); LDL CHOLESTEROL 111.2 MG/DL (<100); NON-HDL-C 154.6 MG/DL; PTH INTACT 34.1 PG/ML (18.5-88.0); TOTAL 25(OH) VITAMIN D 38.5 NG/ML (20.0-100.0); TRIGLYCERIDES LEVEL 217 MG/DL (<150)
[2022-12-05 14:54] LABS: VITAMIN B12 LEVEL > 2000 PG/ML (211-911)
== END ==
LOC: M PLALAB 11:12
PROVIDERS: ATTEND Family Medicine
DX: D47.2 Monoclonal gammopathy (principal); E03.9 Hypothyroidism, unspecified; R73.01 Impaired fasting glucose; E55.9 Vitamin D deficiency, unspecified; E53.8 Deficiency of other specified B group vitamins

== ENCOUNTER → 2023-04-13 | Outpatient (CLI) | payer OTHER | LOC: M WHC 07:40 | PROVIDERS: ATTEND Family Medicine | DX: R16.1 Splenomegaly, not elsewhere classified (principal); D75.1 Secondary polycythemia; K76.89 Other specified diseases of liver; K76.0 Fatty (change of) liver, not elsewhere classified ==

== ENCOUNTER → 2023-06-12 | Outpatient (REF) | payer OTHER | LOC: M SFHCPLAZ 17:59 | PROVIDERS: ATTEND Family Medicine | DX: D75.1 Secondary polycythemia (principal); R16.1 Splenomegaly, not elsewhere classified; D47.2 Monoclonal gammopathy; Z53.8 Procedure and treatment not carried out for other reasons ==

== ENCOUNTER → 2023-07-18 | Outpatient (CLI) | payer OTHER ==
[2023-07-18 12:11] LABS: BASO # 0.1 10^3/uL (0.0-0.2); BASO % 0.8 % (0.0-1.0); EOS # 0.1 10^3/uL (0.0-0.5); EOS % 0.8 % (0.0-3.0); HEMATOCRIT 52.6 % (36.0-47.0); HEMOGLOBIN 18.2 g/dl (12.0-15.5); LYMPH # 1.8 10^3/uL (1.5-5.0); LYMPH % 20.3 % (24.0-44.0); MEAN CORPUSCULAR HEMOGLOBIN 37.4 pg (27.0-33.0); MEAN CORPUSCULAR HGB CONC 34.6 g/dl (32.0-36.5); MONO # 0.8 10^3/uL (0.0-0.8); MONO % 8.9 % (2.0-8.0); NEUTROPHILS # 6.1 10^3/uL (1.5-8.5); NEUTROPHILS % 68.7 % (36.0-66.0); PLATELET COUNT, AUTOMATED 217 10^3/uL (150-450); RED BLOOD COUNT 4.87 10^6/uL (4.00-5.40); WHITE BLOOD COUNT 8.9 10^3/uL (4.0-10.0)
[2023-07-18 12:21] LABS: INR 1.02; PROTHROMBIN TIME 13.1 SECONDS (12.5-14.5)
[2023-07-18 12:22] LABS: PARTIAL THROMBOPLASTIN TIME 27.3 SECONDS (24.8-34.2)
[2023-07-18 12:36] LABS: IMMUNOGLOBULIN G 878 MG/DL (650-1600)
== END ==
LOC: M LAB 11:10
PROVIDERS: ATTEND Family Medicine
DX: D75.1 Secondary polycythemia (principal); D47.2 Monoclonal gammopathy; R16.1 Splenomegaly, not elsewhere classified

== ENCOUNTER → 2023-09-02 | Outpatient (REF) | payer OTHER | LOC: M LAB REF 17:39 | PROVIDERS: ATTEND Registered Nurse | DX: H10.33 Unspecified acute conjunctivitis, bilateral (principal) ==

== ENCOUNTER → 2023-10-18 | Outpatient (REF) | payer OTHER ==
[~2023-10-18] MED LIST changes: +ALBU8.5H INH; +ECOT81TA5 PO; +ERGO500029 PO; +LEVO50TA5 PO; +OMEP-173 PO; +VENL150C43 PO
== END ==
LOC: M SFHCPLAZ 18:53
PROVIDERS: ATTEND Family Medicine
DX: K76.0 Fatty (change of) liver, not elsewhere classified (principal); D47.2 Monoclonal gammopathy; E55.9 Vitamin D deficiency, unspecified; E78.2 Mixed hyperlipidemia; Z53.9 Procedure and treatment not carried out, unspecified reason

== ENCOUNTER 2023-11-01 09:29 | Day surgery (SDC) | payer OTHER ==
[~2023-11-01] VITALS: Ht 162.6 cm; Wt 107.7 kg
[2023-11-01] MEDS ORDERED: LR 1,000 ML IV SCH ×2 (09:55→12:45)
[2023-11-01] MEDS ORDERED: MIDAZOLAM INJ 2MG/2ML VIAL As Ordered ONE (10:47)
[2023-11-01] MEDS ORDERED: ONDANSETRON 4MG 2ML VIAL As Ordered ONE (10:47)
[2023-11-01] MEDS ORDERED: propofoL 200 MG/20 ML VIAL As Ordered ONE (10:57)
[2023-11-01] MEDS ORDERED: ACETAMINOPHEN 1000MG 100ML IV BAG As Ordered ONE (11:54)
[2023-11-01] MEDS: CIPRODEX OTIC SUSP 7.5ML As Ordered ONE (12:17)
[2023-11-01] MEDS: OXYMETAZOLINE 0.05% NASAL SPRAY (AFRIN) As Ordered ONE (12:27)
[2023-11-01] MEDS ORDERED: HYDROMORPHONE HCL 0.5 MG/ 0.5 ML SYRINGE IV PRN (12:45)
[2023-11-01] MEDS ORDERED: oxyCODONE 5MG TAB PO PRN (12:45)
[2023-11-01] MEDS ORDERED: fentaNYL 100 MCG/2 ML INJECTION IV PRN (12:45)
[2023-11-01] MEDS ORDERED: ONDANSETRON 4MG 2ML VIAL IV PRN (12:45)
[2023-11-01 15:45] VITALS: BP 156/92; TEMP 97.8; O2SAT 95
== END 2023-11-01 15:45 | disposition home or self-care (01) ==
LOC: M SDC 09:29
PROVIDERS: ATTEND Otolaryngology
DX: H69.93 Unspecified Eustachian tube disorder, bilateral (principal); E03.9 Hypothyroidism, unspecified; K21.9 Gastro-esophageal reflux disease without esophagitis; F41.9 Anxiety disorder, unspecified; F32.A Depression, unspecified; G47.33 Obstructive sleep apnea (adult) (pediatric); Z88.8 Allergy status to other drugs, medicaments and biological substances; F17.218 Nicotine dependence, cigarettes, with other nicotine-induced disorders; F12.10 Cannabis abuse, uncomplicated; Z79.51 Long term (current) use of inhaled steroids; Z79.899 Other long term (current) drug therapy
CPT/HCPCS: 69436; J0131; J1100; J2250; J2405

== ENCOUNTER 2025-01-23 10:17 | Day surgery (SDC) | payer OTHER ==
[~2025-01-23] VITALS: Ht 162.6 cm; Wt 113.5 kg
[~2025-01-23 10:17] MED LIST changes: -ADV250INH INH; +ADVA1AER9 INH; +BUSP10TA PO
[2025-01-23] MEDS: LR 1,000 ML IV SCH (10:20)
[2025-01-23] MEDS ORDERED: MIDAZOLAM INJ 2 MG/2 ML VIAL As Ordered ONE (13:24)
[2025-01-23] MEDS ORDERED: ROCURONIUM BROMIDE 50MG/5ML VIAL As Ordered ONE (13:25)
[2025-01-23] MEDS ORDERED: LIDOCAINE 2% 100 MG/5 ML SDV (FOR ANES.) As Ordered ONE (13:26)
[2025-01-23] MEDS ORDERED: ALBUTEROL 6.7 GM INHALER **FOR ANES. CART/OMNICELL ONLY As Ordered ONE (14:40)
[2025-01-23] MEDS ORDERED: ONDANSETRON 4MG 2ML VIAL As Ordered ONE (14:41)
[2025-01-23] MEDS ORDERED: dexAMETHasone 4 MG/ML 1 ML VIAL As Ordered ONE (14:41)
[2025-01-23] MEDS ORDERED: SUGAMMADEX SODIUM 200 MG/2 ML VIAL As Ordered ONE (14:42)
[2025-01-23] MEDS ORDERED: ACETAMINOPHEN 1000MG/100ML IV BAG As Ordered ONE (14:43)
[2025-01-23] MEDS ORDERED: HYDROmorphone HCL 2 MG/ML 1 ML VIAL As Ordered ONE (14:55)
[2025-01-23] MEDS: METHYLENE BLUE 0.5% (5 MG/ML) 10 ML AMP As Ordered ONE (14:55)
[2025-01-23] MEDS: OXYMETAZOLINE 0.05% NASAL SPRAY As Ordered ONE (14:55)
[2025-01-23] MEDS: CIPRODEX OTIC SUSP 7.5 ML As Ordered ONE (14:57)
[2025-01-23] MEDS ORDERED: PHENYLephrine 500MCG 5ML (100MCG/ML) SYRINGE As Ordered ONE (15:06)
[2025-01-23] MEDS: EPINEPHrine 1 MG/ML INJ 30 ML MD-VIAL As Ordered ONE (15:24)
[2025-01-23] MEDS ORDERED: dexmedeTOMIDine (4 MCG/ML) 200 MCG/50 ML BTL As Ordered ONE (15:46)
[2025-01-23] MEDS ORDERED: HYDROMORPHONE HCL 0.5 MG/0.5 ML SYRINGE IV PRN (15:55)
[2025-01-23] MEDS ORDERED: LR 1,000 ML IV SCH (15:55)
[2025-01-23] MEDS ORDERED: LABETALOL 100 MG/20 ML VIAL As Ordered ONE (16:14)
[2025-01-23] MEDS ORDERED: LABETALOL 100 MG/20 ML VIAL IV PRN (16:20)
[2025-01-23 17:35] VITALS: BP 131/79; TEMP 96.8; O2SAT 90
== END 2025-01-23 17:48 | disposition home or self-care (01) ==
LOC: M SDC 10:17
PROVIDERS: ATTEND Otolaryngology
DX: H69.93 Unspecified Eustachian tube disorder, bilateral (principal); J39.2 Other diseases of pharynx; E03.9 Hypothyroidism, unspecified; K21.9 Gastro-esophageal reflux disease without esophagitis; J45.909 Unspecified asthma, uncomplicated; F41.9 Anxiety disorder, unspecified; F32.A Depression, unspecified; F17.210 Nicotine dependence, cigarettes, uncomplicated; Z79.51 Long term (current) use of inhaled steroids; Z79.899 Other long term (current) drug therapy; Z88.8 Allergy status to other drugs, medicaments and biological substances
CPT/HCPCS: 31237; 69436; 69706; 88305; 93005; C1726; J0131; J0169; J1100; J1171; J2250; J2371; J2405; J3010; Q9968

== ENCOUNTER → 2025-02-03 | Outpatient (REF) | payer OTHER | LOC: M LAB REF 16:30 | PROVIDERS: ATTEND Otolaryngology | DX: D10.9 Benign neoplasm of pharynx, unspecified (principal) ==

== ENCOUNTER → 2025-02-27 | Outpatient (CLI) | payer OTHER ==
[2025-02-27 14:50] LABS: BASO # 0.1 10^3/uL (0.0-0.2); BASO % 0.6 % (0.0-1.0); EOS # 0.1 10^3/uL (0.0-0.5); EOS % 1.3 % (0.0-3.0); LYMPH # 2.1 10^3/uL (1.5-5.0); LYMPH % 22.2 % (24.0-44.0); MONO # 0.9 10^3/uL (0.0-0.8); MONO % 9.7 % (2.0-8.0); NEUTROPHILS # 6.1 10^3/uL (1.5-8.5); NEUTROPHILS % 65.7 % (36.0-66.0); PLATELET COUNT, AUTOMATED 208 10^3/uL (150-450)
[2025-02-27 15:15] LABS: ALT/SGPT 15 U/L (7.0-40); AST/SGOT 12 U/L (<34); CALCIUM LEVEL 9.4 MG/DL (8.5-10.1); CARBON DIOXIDE LEVEL 32 MMOL/L (20-31); CHLORIDE LEVEL 105 MMOL/L (98-107); CHOLESTEROL LEVEL 246 MG/DL (<200); CHOLESTEROL RISK RATIO 4.19 (<5); CREATININE FOR GFR 0.69 MG/DL (0.55-1.30); FREE T4 1.24 NG/DL (0.89-1.76); GLOMERULAR FILTRATION RATE > 90.0 (>51); LDL CHOLESTEROL 148.5 MG/DL (<100); NON-HDL-C 187.3 MG/DL; POTASSIUM SERUM 4.5 MMOL/L (3.5-5.1); SODIUM LEVEL 143 MMOL/L (136-145); TRIGLYCERIDES LEVEL 194 MG/DL (<150)
[2025-02-27 15:16] LABS: TOTAL 25(OH) VITAMIN D 43.8 NG/ML (20.0-100.0)
[2025-02-27 15:18] LABS: PTH INTACT 42.2 PG/ML (18.5-88.0)
[2025-02-27 15:26] LABS: ESTIMATED AVERAGE GLUCOSE 108.0 MG/DL (60-110)
[2025-03-01 01:37] LABS: PROTEIN, TOTAL SO 7.2 g/dL (6.1-8.1)
[2025-03-02 14:28] LABS: FREE KAPPA LIGHT CHAINS SERUM 25.9 mg/L (3.3-19.4); FREE LAMBDA LIGHT CHAINS SERUM 15.9 mg/L (5.7-26.3); KAPPA/LAMBDA RATIO SERUM 1.63 (0.26-1.65)
== END ==
LOC: M LAB 13:20
PROVIDERS: ATTEND Family Medicine
DX: D47.2 Monoclonal gammopathy (principal); E55.9 Vitamin D deficiency, unspecified; E78.2 Mixed hyperlipidemia; D75.1 Secondary polycythemia